=== PATIENT | female | born 1990 | race Caucasian/White ===

== ENCOUNTER 2022-12-06 06:00 | Inpatient (IN) | payer BC, OTHER ==
[~2022-12-06 06:00] MED LIST: CITRIC ACID/SODIUM CITRATE 30 ML UNIT-DOSE CUP PO ONE; ELECTROLYTE-148 SOLN 500 ML IV ONE
[2022-12-06 07:09] VITALS: BMI 23.3
[2022-12-06] MEDS ORDERED: IBUPROFEN 600 MG TABLET (FP) PO PRN (08:18)
[2022-12-06] MEDS ORDERED: ONDANSETRON 4 MG/2 ML VIAL IVPUSH PRN (08:18)
[2022-12-06] MEDS ORDERED: ACETAMINOPHEN 325 MG TABLET (FP) PO PRN ×2 (08:18→12:07)
[2022-12-06] MEDS ORDERED: PHENYLEPHRINE HCL 10 MG/1 ML SINGLE DOSE VIAL ONE (08:39)
[2022-12-06] MEDS ORDERED: ceFAZolin SODIUM 1 GM VIAL ONE (08:39)
[2022-12-06] MEDS ORDERED: morphine SULFATE/PF 1 MG/2 ML (2cc Syringe - QUVA) ONE (08:40)
[2022-12-06 10:07] LABS: CORD BASE EXCESS -1.5 mmol/L (0-2); CORD HCO3 24.6 mmHg (20-29); CORD PCO2 46.2 mmHg (30-78); CORD pH 7.344 (7.14-7.44)
[2022-12-06 10:10] LABS: CORD BASE EXCESS -0.3 mmol/L (0-2); CORD HCO3 27.5 mmHg (20-29); CORD PCO2 58.7 mmHg (30-78); CORD pH 7.289 (7.14-7.44)
[2022-12-06] MEDS ORDERED: OXYTOCIN 10 UNITS/ML VIAL ONE ×2 (10:21)
[2022-12-06] MEDS ORDERED: OXYTOCIN 20 UNITS in 0.9% NS 20 UNIT/1,000 ML INFUS.BAG IV ONE (10:25)
[2022-12-06] MEDS: OXYTOCIN 20 UNITS in 0.9% NS 20 UNIT/1,000 ML INFUS.BAG IV SCH (11:00)
[2022-12-06] MEDS ORDERED: METHYLERGONOVINE MALEATE 0.2 MG/1 ML AMP IM PRN (12:07)
[2022-12-06] MEDS ORDERED: WITCH HAZEL 50% (TUCKS) 40 PAD/JAR PAD TP PRN (12:07)
[2022-12-06] MEDS ORDERED: IBUPROFEN 800 MG/8 ML IJ IVPB PRN (12:07)
[2022-12-06] MEDS ORDERED: SENNOSIDES/DOCUSATE COMBO (SENNA PLUS) TABLET (UD) PO PRN (12:07)
[2022-12-06] MEDS: SIMETHICONE 80 MG TAB.CHEW (FP) PO PRN (20:52)
[2022-12-07] MEDS ORDERED: oxyCODONE HCL 5 MG TABLET PO PRN ×2 (00:07)
[2022-12-07] MEDS: IBUPROFEN 600 MG TABLET (FP) PO PRN ×3 (03:28→16:46)
[2022-12-07] MEDS: SIMETHICONE 80 MG TAB.CHEW (FP) PO PRN ×2 (03:30→09:28)
[2022-12-07 07:42] LABS: BASO % 0.5 % (0-2.0); HEMATOCRIT 34.5 % (32.4-45.2); HEMOGLOBIN 11.7 GM/dL (10.7-15.3); LYMPH % 13.9 % (8-40); MCH 30.6 pg (25.7-33.7); MEAN CELL VOLUME 89.9 fl (80-96); MEAN PLT VOLUME 8.4 fl (7.5-11.1); MONO % 5.5 % (3.8-10.2); NEUT % 79.1 % (42.8-82.8); PLATELET COUNT 231 10^3/uL (134-434); RBC 3.84 M/mm3 (3.60-5.2); RDW 13.3 % (11.6-15.6); WHITE BLOOD COUNT 12.2 K/mm3 (4.0-10.0)
[2022-12-07] MEDS: ENOXAPARIN NA (PORCINE) 40 MG/0.4 ML DISP.SYRIN SQ SCH (09:28)
[2022-12-07] MEDS: PRENATAL VITAMINS W/ FOLIC ACID TABLET (FP) PO SCH (09:28)
[2022-12-07] MEDS ORDERED: BISACODYL 10 MG SUPP.RECT RC PRN (12:07)
[2022-12-08] MEDS: SIMETHICONE 80 MG TAB.CHEW (FP) PO PRN ×3 (01:02→21:20)
[2022-12-08] MEDS: IBUPROFEN 600 MG TABLET (FP) PO PRN ×3 (01:02→21:21)
[2022-12-08] MEDS: ENOXAPARIN NA (PORCINE) 40 MG/0.4 ML DISP.SYRIN SQ SCH (10:54)
[2022-12-08] MEDS: PRENATAL VITAMINS W/ FOLIC ACID TABLET (FP) PO SCH (10:54)
[2022-12-08] MEDS: ELECTROLYTE-148 SOLN 1,000 ML IV SCH (23:39)
[2022-12-08] MEDS: OXYTOCIN 20 UNITS in 0.9% NS 20 UNIT/1,000 ML INFUS.BAG IV SCH (23:40)
[2022-12-09 08:59] LABS: BASO % 0.5 % (0-2.0); EOS % 1.8 % (0-4.5); HEMATOCRIT 33.6 % (32.4-45.2); LYMPH % 20.8 % (8-40); MCH 29.2 pg (25.7-33.7); MCHC 32.8 g/dl (32.0-36.0); MEAN CELL VOLUME 89.1 fl (80-96); MEAN PLT VOLUME 7.8 fl (7.5-11.1); NEUT % 71.9 % (42.8-82.8); PLATELET COUNT 248 10^3/uL (134-434); RBC 3.77 M/mm3 (3.60-5.2); RDW 13.3 % (11.6-15.6); WHITE BLOOD COUNT 10.4 K/mm3 (4.0-10.0)
[2022-12-09 09:02] VITALS: BP 112/55; PULSE 81; RESP 18; TEMP 99
[2022-12-09] MEDS: IBUPROFEN 600 MG TABLET (FP) PO PRN (10:19)
[2022-12-09] MEDS: PRENATAL VITAMINS W/ FOLIC ACID TABLET (FP) PO SCH (10:36)
[2022-12-09] MEDS: ENOXAPARIN NA (PORCINE) 40 MG/0.4 ML DISP.SYRIN SQ SCH (10:36)
== END 2022-12-09 12:35 | disposition home or self-care (01) | DRG 785 ==
LOC: JLDR 06:00 → J3W 11:50
PROVIDERS: ADMIT Obstetrics & Gynecology; ATTEND Obstetrics & Gynecology
PROC: 10D00Z1 Extraction of Products of Conception, Low, Open Approach (ICD-10-PCS; principal; 2022-12-06)
PROC: 0UL70ZZ Occlusion of Bilateral Fallopian Tubes, Open Approach (ICD-10-PCS; 2022-12-06)
DX: O34.211 Maternal care for low transverse scar from previous cesarean delivery (principal); Z30.2 Encounter for sterilization; Z3A.39 39 weeks gestation of pregnancy; Z37.0 Single live birth
CPT/HCPCS: 36415; 36600; 82803; 85025; 88302-TC; 88307-TC